=== PATIENT | male | born 1940 | race Caucasian/White ===

== ENCOUNTER 2017-01-23 19:15 | Emergency (ER) | payer OTHER ==
[~2017-01-23] VITALS: Ht 167.6 cm; Wt 69.7 kg
[~2017-01-23 19:15] MED LIST: ASPIRIN E.C.81 M1 PO; BABY ASPIRIN81 M1 PO; CARDIZEM CD,CA120 MG PO; CELEBREX200 MG PO; CENTRUM SILV1 TABLE1 PO; CHLORASEPTI PO; Citrate Of Magnesia PO; DULCOLAX10 MG PR; DULCOLAX5 MG PO; ENDOCET 5-3251 EACH PO; Ecotrin PO; FISH OIL; Flexeril PO; Lopressor PO; Lovenox SC; OMEGA 3-6-91200 MG PO; Percocet 5/325,Endoc PO; Pravachol PO; RAMIPRIL10 MG PO; SIMVASTATIN20 MG PO; Senokot,Sennagen PO; Zestril,Prinivil PO; Zocor PO; Zofran IV
[2017-01-23 19:50] LABS: EOSINOPHIL (%) 0.8 % (0-5); EOSINOPHIL COUNT 0.1 K/uL (0-0.3); HEMATOCRIT 39.2 % (38.0-50.0); IMMATURE GRANULOCYTE (%) 0.5 % (0.0-0.7); IMMATURE GRANULOCYTE COUNT 0.1 K/uL; INSTRUMENT ABS NEUTROPHIL CT 6.8 K/uL; LYMPHOCYTE COUNT 1.7 K/uL (1.0-2.8); MCH 29.9 PG (29.0-34.0); MCHC 33.4 G/DL (30.0-36.0); MCV 89.5 FL (86-99); MEAN PLAT.VOLUME 9.1 uM^3 (9.0-12.4); MONOCYTE (%) 11.5 % (3-12); MONOCYTE COUNT 1.1 K/uL (0-0.8); NEUTROPHIL (%) 69.3 % (45-76); NEUTROPHIL COUNT 6.8 K/uL (1.8-6.4); PLATELET COUNT 272 K/uL (156-360); RBC DIS.WIDTH-CV 13.5 % (11.8-14.6); RBC DIS.WIDTH-SD 44.3 % (39-53); RED BLOOD COUNT 4.38 M/uL (4.00-5.50); WHITE BLOOD COUNT 9.7 K/uL (4.1-10.2)
[2017-01-23 19:58] LABS: CHLORIDE 100 mEq/L (99-109); POTASSIUM 3.5 mEq/L (3.7-5.4); SODIUM 136 mEq/L (136-147)
[2017-01-23 20:00] LABS: GLUCOSE 126 mg/dL (70-99)
[2017-01-23 20:01] LABS: ANION GAP 10 MEQ/L (2-14)
[2017-01-23 20:04] LABS: GFR ESTIMATE (CALCULATED) > 59 mL/min/; UREA NITROGEN (BUN) 8 mg/dL (9-23)
[2017-01-23 21:51] LABS: TROP-I INTERPRETATION NEGATIVE; TROPONIN-I 0.01 ng/mL (0.0-0.30)
[2017-01-23] MEDS ORDERED: LEVAQUIN500 MG PO (23:00)
[2017-01-23] MEDS ORDERED: TYLENOL WITH C1 EACH PO (23:00)
[2017-01-23 23:54] VITALS: BP 163/100
== END 2017-01-23 23:55 | disposition home or self-care (01) ==
LOC: EME 19:15
PROVIDERS: Emergency Medicine
DX: J18.9 Pneumonia, unspecified organism (principal); J84.10 Pulmonary fibrosis, unspecified; I10 Essential (primary) hypertension; E78.00 Pure hypercholesterolemia, unspecified; Z95.1 Presence of aortocoronary bypass graft; Z79.82 Long term (current) use of aspirin; Z87.891 Personal history of nicotine dependence
CPT/HCPCS: 71020; 80048; 83880; 84484; 85025; 93005; 99281; 99285

== ENCOUNTER 2017-03-23 06:39 | Observation (INO) | payer OTHER ==
[~2017-03-23] VITALS: Ht 167.6 cm; Wt 63.6 kg
[~2017-03-23 06:39] MED LIST changes: +LEVAQUIN500 MG PO; +TYLENOL WITH C1 EACH PO
[2017-03-23 07:11] LABS: EOSINOPHIL (%) 0.7 % (0-5); EOSINOPHIL COUNT 0.1 K/uL (0-0.3); IMMATURE GRANULOCYTE (%) 0.6 % (0.0-0.7); IMMATURE GRANULOCYTE COUNT 0.1 K/uL; INSTRUMENT ABS NEUTROPHIL CT 6.5 K/uL; LYMPHOCYTE COUNT 1.6 K/uL (1.0-2.8); MCH 31.1 PG (29.0-34.0); MCHC 35.5 G/DL (30.0-36.0); MCV 87.6 FL (86-99); MEAN PLAT.VOLUME 9.6 uM^3 (9.0-12.4); MONOCYTE (%) 7.1 % (3-12); MONOCYTE COUNT 0.6 K/uL (0-0.8); NEUTROPHIL (%) 73.5 % (45-76); NEUTROPHIL COUNT 6.5 K/uL (1.8-6.4); PLATELET COUNT 244 K/uL (156-360); RBC DIS.WIDTH-CV 12.6 % (11.8-14.6); RBC DIS.WIDTH-SD 40.8 % (39-53); RED BLOOD COUNT 4.34 M/uL (4.00-5.50); WHITE BLOOD COUNT 8.8 K/uL (4.1-10.2)
[2017-03-23 07:23] LABS: D-DIMER ELISA 0.17 mg/L FEU (< 0.57); INTER. NORMALIZED RATIO 1.1; PROTHROMBIN TIME 10.7 (9.2-11.2); PTT 27.8 (25-32)
[2017-03-23 07:53] LABS: ANION GAP 11 MEQ/L (2-14); CHLORIDE 84 MEQ/L (99-109); GFR ESTIMATE (CALCULATED) > 59 mL/min/; GLUCOSE 143 mg/dL (70-99); POTASSIUM 3.7 MEQ/L (3.7-5.4); SAMPLE HEMOLYSIS CHECK 0; SAMPLE ICTERIC CHECK 0; SAMPLE LIPEMIA CHECK 0; SODIUM 122 MEQ/L (136-147); UREA NITROGEN (BUN) 12 mg/dL (9-23)
[2017-03-23 07:59] LABS: TROP-I INTERPRETATION NEGATIVE; TROPONIN-I 0.01 ng/mL (0.0-0.30)
[2017-03-23] MEDS ORDERED: ECOTRIN325 MG PO (08:51)
[2017-03-23] MEDS ORDERED: OMEGA 3-6-9 11200 MG PO (08:53)
[2017-03-23] MEDS ORDERED: ALDACTAZIDE 251 EACH PO (08:53)
[2017-03-23] MEDS ORDERED: METFORMIN HCL500 M1 PO (08:54)
[2017-03-23] MEDS ORDERED: TOPROL XL50 MG PO (08:55)
[2017-03-23] MEDS ORDERED: CALCIUM 600 +1 EA16 PO (08:56)
[2017-03-23] MEDS ORDERED: ZOCOR20 MG PO (08:56)
[2017-03-23] MEDS ORDERED: ALTACE5 MG PO (08:57)
[2017-03-23] MEDS ORDERED: CORTIZONE-1057 GM TP (08:59)
[2017-03-23 12:58] VITALS: BP 180/93
[2017-03-23 15:09] LABS: ANION GAP 9 MEQ/L (2-14); CHLORIDE 86 MEQ/L (99-109); POTASSIUM 3.6 MEQ/L (3.7-5.4); SAMPLE HEMOLYSIS CHECK 0; SAMPLE ICTERIC CHECK 0; SAMPLE LIPEMIA CHECK 0; SODIUM 121 MEQ/L (136-147)
[2017-03-23 15:10] VITALS: BP 164/87
[2017-03-23 15:15] LABS: GFR ESTIMATE (CALCULATED) > 59 mL/min/; GLUCOSE 129 mg/dL (70-99); UREA NITROGEN (BUN) 10 mg/dL (9-23)
[2017-03-23 15:19] LABS: TROP-I INTERPRETATION NEGATIVE; TROPONIN-I 0.02 ng/mL (0.0-0.30)
[2017-03-23 19:51] VITALS: BP 159/78
[2017-03-23 20:40] LABS: CHLORIDE 90 mEq/L (99-109); POTASSIUM 3.9 mEq/L (3.7-5.4)
[2017-03-23 20:41] LABS: SODIUM 125 mEq/L (136-147)
[2017-03-23 20:42] LABS: GLUCOSE 110 mg/dL (70-99)
[2017-03-23 20:44] LABS: ANION GAP 10 MEQ/L (2-14)
[2017-03-23 20:46] LABS: GFR ESTIMATE (CALCULATED) > 59 mL/min/
[2017-03-23 20:47] LABS: UREA NITROGEN (BUN) 10 mg/dL (9-23)
[2017-03-23 20:54] LABS: TROP-I INTERPRETATION NEGATIVE; TROPONIN-I 0.01 ng/mL (0.0-0.30)
[2017-03-23 23:45] VITALS: BP 158/83
[2017-03-24 03:00] LABS: CHLORIDE 95 mEq/L (99-109); SODIUM 131 mEq/L (136-147)
[2017-03-24 03:02] LABS: GLUCOSE 100 mg/dL (70-99)
[2017-03-24 03:03] LABS: ANION GAP 9 MEQ/L (2-14)
[2017-03-24 03:06] LABS: GFR ESTIMATE (CALCULATED) > 59 mL/min/; UREA NITROGEN (BUN) 9 mg/dL (9-23)
[2017-03-24 03:08] VITALS: BP 123/79
[2017-03-24 06:08] LABS: POINT-OF-CARE METER ID UU13113725
[2017-03-24 08:20] VITALS: BP 166/78
[2017-03-24 09:10] LABS: ALKALINE PHOSPHATASE 67 IU/L (3-129); ANION GAP 7 MEQ/L (2-14); ANION GAP 8 MEQ/L (2-14); GFR ESTIMATE (CALCULATED) > 59 mL/min/; GLUCOSE 99 mg/dL (70-99); POTASSIUM 4.1 MEQ/L (3.7-5.4); SAMPLE HEMOLYSIS CHECK 0; SAMPLE ICTERIC CHECK 0; SAMPLE LIPEMIA CHECK 0; SODIUM 133 MEQ/L (136-147); SODIUM 134 MEQ/L (136-147); TOTAL BILIRUBIN 0.8 MG/DL (0.0-1.0); UREA NITROGEN (BUN) 8 mg/dL (9-23)
[2017-03-24 09:14] LABS: CHLORIDE 97 MEQ/L (99-109); CHLORIDE 98 MEQ/L (99-109)
[2017-03-24 10:57] VITALS: BP 128/76
[2017-03-24] MEDS ORDERED: ALTACE5 MG PO (11:51)
[2017-03-24 12:03] VITALS: BP 168/80
== END 2017-03-24 13:42 | disposition home or self-care (01) ==
LOC: EME 06:39 → 5EAST 08:47 → EDOF 08:47 → 5EAST 08:47
PROVIDERS: Emergency Medicine; Internal Medicine; Internal Medicine Nephrology
DX: E87.1 Hypo-osmolality and hyponatremia (principal); T50.2X5A Adverse effect of carbonic-anhydrase inhibitors, benzothiadiazides and other diuretics, initial encounter; N17.9 Acute kidney failure, unspecified; E86.9 Volume depletion, unspecified; I27.2 Other secondary pulmonary hypertension; J84.10 Pulmonary fibrosis, unspecified; R55 Syncope and collapse; G47.30 Sleep apnea, unspecified; I45.10 Unspecified right bundle-branch block; I25.10 Atherosclerotic heart disease of native coronary artery without angina pectoris; Z95.1 Presence of aortocoronary bypass graft; I25.2 Old myocardial infarction; E11.9 Type 2 diabetes mellitus without complications; I10 Essential (primary) hypertension; E78.5 Hyperlipidemia, unspecified; Z87.891 Personal history of nicotine dependence
CPT/HCPCS: 70450; 70551; 71010; 71275; 80048; 80048 91; 80053; 82533 91; 82607; 82746; 82948; 83930; 83935; 84300; 84443; 84484; 85025; 85379; 85610; 85730; 93005; 93306; 93880; 95819; 99281; 99285; G0378; J1650; J1815; J7030

== ENCOUNTER 2017-03-26 08:10 | Observation (INO) | payer OTHER ==
[~2017-03-26] VITALS: Ht 167.6 cm; Wt 65.6 kg
[~2017-03-26 08:10] MED LIST changes: +ALDACTAZIDE 251 EACH PO; +ALTACE5 MG PO; +CALCIUM 600 +1 EA16 PO; +CORTIZONE-1057 GM TP; +ECOTRIN325 MG PO; +METFORMIN HCL500 M1 PO; +OMEGA 3-6-9 11200 MG PO; +TOPROL XL50 MG PO; +ZOCOR20 MG PO
[2017-03-26 09:17] LABS: HEMATOCRIT 37.8 % (38.0-50.0); MCH 30.9 PG (29.0-34.0); MCHC 34.9 G/DL (30.0-36.0); MCV 88.5 FL (86-99); MEAN PLAT.VOLUME 9.8 uM^3 (9.0-12.4); PLATELET COUNT 257 K/uL (156-360); RBC DIS.WIDTH-CV 13.1 % (11.8-14.6); RBC DIS.WIDTH-SD 42.7 % (39-53); RED BLOOD COUNT 4.27 M/uL (4.00-5.50); WHITE BLOOD COUNT 8.1 K/uL (4.1-10.2)
[2017-03-26 09:28] LABS: CHLORIDE 96 mEq/L (99-109); POTASSIUM 3.9 mEq/L (3.7-5.4); SODIUM 132 mEq/L (136-147)
[2017-03-26 09:31] LABS: ANION GAP 12 MEQ/L (2-14); GLUCOSE 164 mg/dL (70-99)
[2017-03-26 09:33] LABS: GFR ESTIMATE (CALCULATED) > 59 mL/min/
[2017-03-26 09:34] LABS: UREA NITROGEN (BUN) 8 mg/dL (9-23)
[2017-03-26 09:40] LABS: TROP-I INTERPRETATION NEGATIVE; TROPONIN-I < 0.01 ng/mL (0.0-0.30)
[2017-03-26] MEDS ORDERED: RAMIPRIL10 MG PO (13:08)
[2017-03-26 13:30] VITALS: BP 144/79
[2017-03-26 16:00] VITALS: BP 163/85
[2017-03-26 16:45] LABS: TROP-I INTERPRETATION NEGATIVE; TROPONIN-I 0.01 ng/mL (0.0-0.30)
[2017-03-26 19:15] VITALS: BP 169/83
[2017-03-26 21:47] LABS: POINT-OF-CARE USER ID ENVKC36
[2017-03-26 22:28] LABS: TROP-I INTERPRETATION NEGATIVE; TROPONIN-I 0.02 ng/mL (0.0-0.30)
[2017-03-26 23:00] VITALS: BP 149/91
[2017-03-27 03:15] VITALS: BP 147/78
[2017-03-27 07:31] VITALS: BP 144/78
[2017-03-27 07:45] LABS: POINT-OF-CARE METER ID UU14174216
[2017-03-27 09:33] LABS: ANION GAP 9 MEQ/L (2-14); CHLORIDE 103 MEQ/L (99-109); GFR ESTIMATE (CALCULATED) > 59 mL/min/; POTASSIUM 3.8 MEQ/L (3.7-5.4); SAMPLE HEMOLYSIS CHECK 0; SAMPLE ICTERIC CHECK 0; SAMPLE LIPEMIA CHECK 0; SODIUM 138 MEQ/L (136-147); UREA NITROGEN (BUN) 11 mg/dL (9-23)
[2017-03-27 09:35] LABS: GLUCOSE 99 mg/dL (70-99)
[2017-03-27] MEDS ORDERED: METOPROLOL SUCC50 MG PO (11:11)
[2017-03-27] MEDS ORDERED: AMLODIPINE BESYL5 MG PO (11:12)
== END 2017-03-27 12:15 | disposition home or self-care (01) ==
LOC: EME 08:10 → 4EAST 12:17 → EDOF 12:17 → 4EAST 13:20
PROVIDERS: Emergency Medicine; Hospitalist; Internal Medicine; Internal Medicine Cardiovascular Disease
DX: I16.0 Hypertensive urgency (principal); I10 Essential (primary) hypertension; E87.1 Hypo-osmolality and hyponatremia; R00.1 Bradycardia, unspecified; I45.10 Unspecified right bundle-branch block; E11.9 Type 2 diabetes mellitus without complications; I25.10 Atherosclerotic heart disease of native coronary artery without angina pectoris; I25.2 Old myocardial infarction; E78.5 Hyperlipidemia, unspecified; Z95.1 Presence of aortocoronary bypass graft; Z87.891 Personal history of nicotine dependence
CPT/HCPCS: 70450; 80048; 82948; 84484; 85027; 93005; 99281; 99285; G0378; J1650; J1815; J7030